=== PATIENT | female | born 1955 | race Caucasian/White ===

== ENCOUNTER → 2017-10-14 | Outpatient (CLI) | payer OTHER ==
[~2017-10-14] MED LIST: AMBIEN 10 MG TA10 MG PO; ANUSOL1 EACH; ATIVAN0.5 M1 PO; BACLOFEN 10 MG10 MG PO; BACLOFEN20 MG PO; CIPROFLOXACIN500 M3 PO; COMPLETE M9 MG/15 ML PO; COMPLETE PO; CYMBALTA30 MG PO; ESTRADIOL 1 MG T1 M1 PO; FENTANYL 1100 MCG/HR TRANSDERM; FLAGYL500 MG PO; HYDROCODON-ACE1 EAC5 PO; LAMISIL250 MG PO; LIDODERM 5%1 PATCH; LIORESAL 10 MG10 MG PO; LISINOPRIL10 MG PO; LUNESTA3 MG; NABUMETONE 750750 M1 PO; NEURONTIN800 MG PO; NICOTINE TRANSD21 M1 TRANSDERM; OMEPRAZOLE 20 M20 MG PO; PREMARIN0.3 MG; SONATA10 MG PO; VITAMIN B-12500 MCG PO; VITAMIN D32000 UNI1 PO; ZOLOFT100 MG PO
[2017-10-14 08:47] LABS: ABSOLUTE NEUTROPHILS 6.7 thou/uL (1.4-8.2); BASOPHILS 0.4 % (0.0-2.0); EOSINOPHILS 0.5 % (0.0-3.0); HEMATOCRIT 45.7 % (37.0-47.0); HEMOGLOBIN 15.4 gm/dL (12.0-15.0); LYMPHOCYTES 21.2 % (24.0-44.0); MCH 29.6 pg (26.0-34.0); MCHC 33.7 g/dL (28.0-37.0); MCV 87.9 fL (80.0-100.0); MONOCYTES 5.1 % (1.0-8.0); POLYS 72.8 % (36.0-66.0); RDW 13.5 % (10.5-14.5); WBC 9.2 thou/uL (4.0-11.0)
[2017-10-14 09:20] LABS: CALCIUM 9.6 mg/dL (8.5-10.1); CREATININE 0.9 mg/dL (0.6-1.0)
[2017-10-14 09:26] LABS: ALBUMIN 3.8 g/dL (3.4-5.0); TOTAL BILIRUBIN 0.3 mg/dL (<0.1-1.0); TOTAL PROTEIN 7.2 g/dL (6.4-8.2)
[2017-10-14 09:35] LABS: PLATELET COUNT 118 thou/uL (150-400)
== END ==
LOC: CAT 07:44
PROVIDERS: Internal Medicine Gastroenterology
DX: K76.0 Fatty (change of) liver, not elsewhere classified (principal); R16.0 Hepatomegaly, not elsewhere classified; K20.9 Esophagitis, unspecified; J44.9 Chronic obstructive pulmonary disease, unspecified; K21.9 Gastro-esophageal reflux disease without esophagitis; Z90.49 Acquired absence of other specified parts of digestive tract